=== PATIENT | female | born 1975 | race Caucasian/White ===

== ENCOUNTER 2023-03-31 18:40 | Inpatient (IN) ==
[2023-03-31] MEDS ORDERED: Buffered Lidocaine 1% SYRIN 1 ml INTRADERM ONE (21:58)
[2023-03-31] MEDS ORDERED: Lactated Ringers 1000 ml BAG 1,000 ML IV ONE (21:58)
[2023-03-31] MEDS ORDERED: Promethazine INJ(RESTRICTED) 25 MG/ML 1 ml VIAL IV PRN (21:58)
[2023-03-31] MEDS ORDERED: Nalbuphine 10 MG/ML 1 ML VIAL IV PRN (21:58)
[2023-03-31] MEDS ORDERED: Lactated Ringers 1000 ml BAG 1,000 ML IV SCH (22:00)
[2023-03-31] MEDS ORDERED: Dinoprostone 10 MG VAG.SUPP VAGINAL ONE (22:32)
[2023-03-31 23:08] LABS: Urine Benzodiazepine Screen None Detected (None Detect); Urine Cannabinoids Screen None Detected (None Detect); Urine Opiates Screen None Detected (None Detect)
[2023-04-01] MEDS ORDERED: Oxytocin in LR 20,000 MILLI.UNIT/1,000 ML BAG IV SCH ×2 (08:35→16:15)
[2023-04-01] MEDS ORDERED: Lidocaine 1% w EPI 1:200,000 SDV 30 ML VIAL ONE (09:30)
[2023-04-01] MEDS ORDERED: OBEPIDURAL (200 ML) 200 ML EPIDURAL ONE (09:30)
[2023-04-01 10:07] LABS: ABS Lymphocytes 1.6 10^3/uL (1.0-4.8); ABS Monocytes 0.7 10^3/uL (0.0-0.9); ABS Neutrophils 6.7 10^3/uL (1.5-7.6); Eosinophil % 0.3 %; Hematocrit 33.4 % (35-45); Hemoglobin 11.9 g/dL (11.5-14.3); Mean Corpuscular Hemoglobin 30.9 pg (27-33); Mean Corpuscular Hgb Conc 35.6 g/dL (31-36); Nucleated Red Blood Cells % 0.1 /100 WBC (0.0-0.4); Platelet Count 201 10^3/uL (150-450); Red Blood Count 3.84 10^6/uL (3.63-4.92); Red Cell Distribution Width 13.7 % (12-17); White Blood Count 9.1 10^3/uL (3.8-11.8)
[2023-04-01 11:29] LABS: Urine Appearance Clear; Urine Bilirubin Negative (Negative); Urine Blood Negative (Negative); Urine Color Yellow; Urine Glucose Negative (Negative); Urine Ketones 1+ (Negative); Urine Nitrite Negative (Negative); Urine Protein 1+(30 mg/dL) (Negative); Urine Specific Gravity 1.021 (1.002-1.030); Urine Urobilinogen Negative (Negative)
[2023-04-01 11:34] LABS: Urine Bacteria Absent (Absent); Urine Red Blood Cell Trace(0-2/hpf) (Absent); Urine Squamous Epithelial Cell Present (Absent); Urine White Blood Cell Absent (Absent)
[2023-04-01] MEDS ORDERED: Phenylephrine 40 mcg/mL 10mL (400mcg) SYRINGE IV PUSH PRN ×2 (14:46)
[2023-04-01] MEDS ORDERED: Lactated Ringers 1000 ml BAG 1,000 ML IV ONE (14:46)
[2023-04-01] MEDS ORDERED: Sodium Citrate/Citric Acid LIQ 15 ML UDC PO PRN (14:46)
[2023-04-01] MEDS ORDERED: Lactated Ringers 1000 ml BAG 1,000 ML IV SCH ×2 (15:00→17:00)
[2023-04-01] MEDS ORDERED: OBEPIDURAL (200 ML) 200 ML EPIDURAL SCH (15:00)
[2023-04-01] MEDS ORDERED: Glycerin ADULT 2.4 gm SUPP PR PRN (16:14)
[2023-04-01] MEDS: Dibucaine 1% OINT 28.35 GM TUBE PR PRN (17:16)
[2023-04-01] MEDS: Witch Hazel PAD JAR TOPICAL PRN (17:16)
[2023-04-02 06:42] LABS: ABS Lymphocytes 1.8 10^3/uL (1.0-4.8); ABS Monocytes 0.7 10^3/uL (0.0-0.9); ABS Neutrophils 7.8 10^3/uL (1.5-7.6); ABS Nucleated RBC 0.01 10^3/ul; Eosinophil % 0.4 %; Hematocrit 29.6 % (35-45); Hemoglobin 10.5 g/dL (11.5-14.3); Lymphocyte % 17.6 %; Mean Corpuscular Hemoglobin 31.5 pg (27-33); Mean Corpuscular Hgb Conc 35.5 g/dL (31-36); Mean Corpuscular Volume 88.7 fL (80-97); Mean Platelet Volume 8.7 fL (7.5-11.2); Nucleated Red Blood Cells % 0.1 /100 WBC (0.0-0.4); Platelet Count 181 10^3/uL (150-450); Red Blood Count 3.34 10^6/uL (3.63-4.92); Red Cell Distribution Width 13.6 % (12-17); White Blood Count 10.4 10^3/uL (3.8-11.8)
[2023-04-02] MEDS: Dibucaine 1% OINT 28.35 GM TUBE PR PRN (08:24)
[2023-04-02 16:54] VITALS: BP 124/72
[2023-04-02] MEDS: Witch Hazel PAD JAR TOPICAL PRN (18:05)
== END 2023-04-02 19:45 | disposition home or self-care (01) | DRG 807 ==
LOC: MCHOBOUT 18:40 → MCHOB 20:39
PROVIDERS: ADMIT Obstetrics & Gynecology; ATTEND Obstetrics & Gynecology